=== PATIENT | female | born 1985 | race Caucasian/White ===

== ENCOUNTER 2019-03-25 13:24 | Emergency (ER) | payer OTHER, SELFPAY ==
--- NOTE | ~2019-03-25 | XR_ITS ---
EXAMINATION: XR chest 2V DATE: 03/25/2019 14:04 INDICATION: Palpitations. TECHNIQUE: Frontal and lateral views of the chest were obtained. COMPARISON: Chest 2 views 12/26/2018 FINDINGS: There is chronic mild elevation of right hemidiaphragm. There is no pneumonia, pleural effu joyce, or pneumothorax. The heart size is normal. There is a right internal jugular port with tip in t he vena cava. There are surgical clips in right axilla. IMPRESSION: 1. No acute cardiopulmonary disease. Reviewed, dictated and finalized at location A. L OPERATIONS MANAGER
--- NOTE | ~2019-03-25 | CT_ITS ---
EXAMINATION: CTA chest PE protocol DATE: 03/25/2019 16:46 INDICATION: Shortness of breath. TECHNIQUE: Computed tomography angiography (CTA) of the chest was performed with 100 mL Omnipaque-350 intravenous contrast timed to evaluate the pulmonary arteries. Coronal maximum intensity projection 3D-reconstructions were created by the technologist. Automated exposure control and iterative reconst ruction technique were employed. The dose-length product was 422.89 mGy-cm. COMPARISON: CT abdomen and pelvis 11/03/2018 FINDINGS: There is mild atelectasis in the lungs bilaterally. There is mild radiation fibrosis in ant erior right lung. No pleural effusion. There is a right internal jugular port with tip in right atriu m. The heart size is normal. No pericardial effusion. There is no pulmonary embolus. There is diffuse hepatic steatosis. There are surgical clips in right axilla. There are changes of bilateral mastecto mies. There are scattered mixed lytic and sclerotic lesions of bone with involvement of the sternum, most of the vertebral bodies, and some of the ribs. IMPRESSION: 1. No pulmonary embolus. Sensitivity is mildly decreased by motion artifact. 2. Mild radiation fibrosis in anterior right lung. 3. Bone lesions, consistent with metastatic disease. Reviewed, dictated and finalized at location A. GENCY ROOM CLINICIAN
--- NOTE | 2019-03-25 13:26 | ECG_ITS ---
Measurements Intervals [place] Rate: 116 P: -26 DC: 133 QRS: 133 QRSD: 90 T: -11 QT: 315 QTc: 439 Interpretive Statements SINUS OR ECTOPIC ATRIAL TACHYCARDIA RIGHT AXIS DEVIATION CONSIDER INFERIOR INFARCT, AGE INDETERMINATE BASELINE ARTIFACT- II ABNORMAL ECG Electronically Signed On 03-25-2019 13:44:32 RETAIL DEPARTMENT SUPERVISOR by Bayron Dobson D.O.
[2019-03-25 13:27] VITALS: BP 181/118; PULSE 110; RESP 19; TEMP 36.6; O2SAT 100
--- NOTE | 2019-03-25 13:43 | PC.NURSE ---
Unable to obtain all labs at this time, patient has port and would like to use that. Patient placed in private waiting room for patient safety due to active cancer treatment and immune compromise.
[2019-03-25 14:17] LABS: Troponin I < 0.012 ng/mL (0.000-0.034)
[2019-03-25 14:22] LABS: Blood Urea Nitrogen 10 mg/dL (7-17); Calcium 9.3 mg/dL (8.4-10.2); Carbon Dioxide 19 mmol/L (22-30); Chloride 103 mmol/L (98-107); Estimated CRCL calculation 166 ml/min; Estimated Glomerular Filt Rate > 60; Glucose 99 mg/dL (65-105); Potassium 3.8 mmol/L (3.4-5.0); Sodium 139 mmol/L (137-145)
[2019-03-25 14:30] VITALS: BP 144/100; PULSE 107; RESP 20; O2SAT 98
--- NOTE | 2019-03-25 14:36 | ED.ARRPALP ---
HPI - Arrhythmia/Palpitations General Chief Complaint: Arrhythmia/Palpitations Stated Complaint: elevated bp and hr Time Seen by Provider: 03/25/19 14:30 Source: patient Mode of arrival: ambulatory Limitations: no limitations History of Present Illness HPI narrative: A 33 y/o female presents to the ED, with c/o heart palpitations that began this morning. Pt states that she was sitting at her desk at work when she could feel her heart racing and notes feeling hot, lightheaded, very SOB and having N/V, but denies having CP. Her BP at work was 187/120 and her pulse was 114. Pt reports feeling less than normal for the past 2 weeks, and is having a recent onset of WORLEY, fatigue, high BP, panic attacks, hand swelling, BLE swelling (worse on lt), numbness in her feet, decreased appetite, and weight gain. She reports having unusual bruising to her LLE that she states is tender and keeps getting darker. Pt notes having metastatic breast CA but otherwise denies any PMHx. MD complaint: heart racing Onset (ago): hour(s) Duration: constant Associated symptoms: shortness of breath, nausea and vomiting Related Data Home Medications Medication Instructions Recorded Confirmed lorazepam 0.5 mg PO BID PRN 12/26/18 12/26/18 ondansetron 4 mg PO Q6H PRN 12/26/18 12/26/18 palbociclib 125 mg PO DAILY 12/26/18 12/26/18 prochlorperazine maleate 10 mg PO Q6H PRN 12/26/18 12/26/18 morphine PO 03/25/19 Allergies Allergy/AdvReac Type Severity Reaction Status Date / Time DIPHENHYDRAMINE HCL Allergy Severe Swelling Uncoded 03/25/19 13:30 Review of Systems Review of Systems: All systems reviewed & are unremarkable except as noted in HPI and below Constitutional: Constitutional: Reports fatigue, Reports headache(s), Reports poor appetite and Reports weight gain Cardiovascular: Cardiovascular: Denies chest pain, Reports pedal edema, Reports lightheadedness, Reports palpitations and Reports dyspnea Gastrointestinal: Gastrointestinal: Reports nausea and Reports vomiting Musculoskeletal: Musculoskeletal: Reports joint swelling (Bilateral hand swelling) and Reports numbness (BLE) Integumentary/Breasts: Skin/Breast: Reports unusual bruising (LLE) Psychiatric: Psychiatric: Reports panic attacks PMFSH Past Medical History Medical History Bipolar 1 disorder Breast cancer with chemotherapy and radiation therapy TIA (transient ischemic attack) Surgical History Surgical History Deficient knowledge of caesarean delivery x2 H/O mastectomy Social History Social History Smoking status: Unknown if ever smoked Gender identity (if verbalized by the patient): Female Exam Const: General: healthy appearing and no acute distress Nutritional Appearance: well nourished HENMT: Mouth: Yes lip normal and Yes moist mucous membranes Eyes: Conjunctivae: conjunctivae normal Pupils: Equal, round and reactive pupils present Resp: Effort & Inspection: normal respiratory effort Auscultation: clear to auscultation bilaterally Cardio: Rate: tachycardic Rhythm: regular rhythm Heart sounds: no murmurs GI: GI Palp: Yes Soft to palpation and No Tenderness to palpation present (GI) Auscultation: normal bowel sounds Back/Spine/Pelvis: Other: Full ROM Skin: General skin exam: normal color, dry skin and other (warm) Neuro: General: patient oriented x3 (alert) Speech: normal speech Extrem: General: full ROM Other: BLE edema (worse on the lt than the rt) Bruising on the posterior medial calf Psych: Mental Status: mental status grossly normal Affect: normal affect Course Vital Signs Vital signs: Vital Signs Temperature 36.6 C 03/25/19 13:27 Pulse Rate 110 H 03/25/19 13:27 Respiratory Rate 19 03/25/19 13:27 Blood Pressure 181/118 H 03/25/19 13:27 Pulse Oximetry 100 02
[2019-03-25 15:21] LABS: Basophils Percent Auto 0.8 % (0.2-1.2); Eosinophils Absolute Auto 0.4 K/mm3 (0-0.3); Eosinophils Percent Auto 7.9 % (0-4.4); Hematocrit 33.6 % (37.0-47.0); Hemoglobin 10.9 g/dL (12.0-15.0); Immature Granulocyte Absolute 0.11 K/mm3 (0.00-0.031); Immature Granulocyte Percent A 2.1 % (0-0.5); Lymphocytes Absolute Auto 1.42 K/mm3 (0.9-3.2); Lymphocytes Percent Auto 26.7 % (18.3-44.2); Mean Corpuscular HGB Conc 32.4 g/dl (32-36); Mean Corpuscular Hemoglobin 29.4 pg (26-34); Mean Corpuscular Volume 90.6 fl (80-100); Mean Platelet Volume 8.6 fl (7.4-10.4); Monocytes Absolute Auto 0.8 K/mm3 (0.1-0.6); Monocytes Percent Auto 14.1 % (2.6-8.5); Neutrophils Absolute Auto 2.6 K/mm3 (1.3-6.7); Neutrophils Percent Auto 48.4 % (45.5-73.1); Platelet Count Result 198 k/mm3 (150-375); Red Blood Count 3.71 M/mm3 (4.2-5.4); Red Cell Distribution Width 14.7 % (11.5-14.5); White Blood Count 5.3 K/mm3 (4.5-10.0)
[2019-03-25 15:30] VITALS: BP 164/109; PULSE 100; RESP 16; O2SAT 98
[2019-03-25 15:51] LABS: INR 0.9; Prothrombin Time 12.2 Seconds (11.1-14.7)
[2019-03-25 15:52] LABS: Partial Thromboplastin Time 35.4 SECONDS (22.3-36.8)
[2019-03-25 16:30] VITALS: BP 149/100; PULSE 105; RESP 18; O2SAT 100
[2019-03-25 17:24] LABS: Troponin I < 0.012 ng/mL (0.000-0.034)
[2019-03-25 17:40] VITALS: BP 147/101; PULSE 102; RESP 20; O2SAT 98
== END 2019-03-25 17:40 | disposition home or self-care (01) ==
PROVIDERS: Emergency Medicine; Emergency Provider Emergency Medicine
DX: R00.2 Palpitations (principal); C50.919 Malignant neoplasm of unspecified site of unspecified female breast; C79.9 Secondary malignant neoplasm of unspecified site; F31.9 Bipolar disorder, unspecified; Z86.73 Personal history of transient ischemic attack (TIA), and cerebral infarction without residual deficits; R00.0 Tachycardia, unspecified; R94.31 Abnormal electrocardiogram [ECG] [EKG]
CPT/HCPCS: 36415; 71046; 71275; 80048; 84484; 85025; 85610; 85730; 93005; 99284; Q9967

== ENCOUNTER 2019-06-04 14:52 | Outpatient (CLI) | payer OTHER, SELFPAY ==
--- NOTE | 2019-06-07 12:16 | WPDHOLTEREM ---
Holter/Event Monitor Holter/Event Monitor Date of procedure: 06/04/19 Procedure Type: 48 hour holter monitor Indications: Palpitations Conclusion: 1. 48 hour holter monitor o 06/04/19. 2. Underlying rhythm is sinus rhythm. HR range 57-160 bpm; average HR 91 bpm. 3. There are 2 premature supraventricular complexes and 1 supraventricular couplet. No supraventricular tachycardia. 4. There are 2 premature ventricular complexes. No ventricular tachycardia. 5. No sinoatrial or atrioventricular blocks. No significant pauses greater than 2 seconds. 6. Patient reports chest pain and shortness of breath which demonstrate sinus rhythm, HR range 93-111 bpm
== END 2019-06-04 14:53 | disposition home or self-care (01) ==
PROVIDERS: PCP Physician Assistant; Visit Provider Internal Medicine Cardiovascular Disease
DX: R00.2 Palpitations (principal)
CPT/HCPCS: 93225; 93226

== ENCOUNTER 2019-06-07 07:38 | Outpatient (CLI) | payer OTHER, SELFPAY ==
--- NOTE | 2019-06-07 07:58 | ECHO_ITS ---
Patient Info Name: Christy Hernadez Age: 33 years : 1985 Gender: Female Ht: 62 in Wt: 202 lbs BSA: 2.05 m2 HR: 91 bpm BP: 136 / 103 mmHg Technical Quality: Fair Exam Date: 06/07/2019 8:11 AM Exam Location: [facility] Patient Status: Outpatient Admit Date: 06/07/2019 Staff Ordering Physician: Bayron Dobson DO Bronze Chaser: Abbie Majano RDCS Attending Provider: Bayron Dobson DO Referring Physician: Bronson LOMELI; Exam Type: CA echo doppler color flow Study Info Indications R00.2 - Palpitations Complete two-dimensional, color flow and Doppler transthoracic echocardiogram is performed. Summary 1. Left ventricular chamber dimension is normal. 2. Left ventricular systolic function is normal, estimated at 60-65%. 3. There is mildly increased left ventricular wall thickness. 4. The left ventricular diastolic function is normal. 5. E/e' 7 is not elevated. 6. Global longitudinal strain is abnormal at -13.1%. 7. There is trace tricuspid valve regurgitation. 8. No pulmonary hypertension, estimated pulmonary arterial systolic pressure is 22 mmHg. 9. There is trace pulmonic regurgitation. Left Ventricle E/e' 7 is not elevated. Global longitudinal strain is abnormal at -13.1%. Left ventricular chamber dimension is normal. Left ventricular systolic function is normal, estimated at 60-65%. There is mildly increased left ventricular wall thickness. The left ventricular diastolic function is normal. Right Ventricle Right ventricular chamber dimension is normal. Right ventricular systolic function is normal. Left Atria Left atrial chamber dimension is normal. Right Atria Right atrial chamber dimension is normal. Aortic Valve The aortic valve is trileaflet. There is no aortic valve stenosis. There is no aortic valve regurgitation. Pulmonic Valve There is trace pulmonic regurgitation. Mitral Valve There is no mitral valve stenosis. There is no mitral valve regurgitation. Tricuspid Valve There is trace tricuspid valve regurgitation. No pulmonary hypertension, estimated pulmonary arterial systolic pressure is 22 mmHg. Pericardium/Pleural There is no pericardial effusion. Inferior Vena Cava Normal inferior vena cava with >50% collapse upon inspiration consistent with normal right atrial pressure, 5 mmHg. Aorta The aortic root size at the sinus of Valsalva is normal. Left Ventricular Outflow Tract Name Value Normal LVOT 2D LVOT Diameter 1.9 cm LVOT Doppler LVOT Peak Gradient 5 mmHg LVOT Mean Gradient 3 mmHg LVOT VTI 19 cm LVOT VTI/AV VTI Ratio 1.1 LVOT Stroke Volume 54 ml LVOT CO 4.9 l/min LVOT CI 2.4 l/min/m2 Pulmonic Valve Name Value Normal RVOT Doppler
== END 2019-06-07 07:39 | disposition home or self-care (01) ==
PROVIDERS: PCP Physician Assistant; Visit Provider Internal Medicine Cardiovascular Disease
DX: R00.2 Palpitations (principal)
CPT/HCPCS: 93306

== ENCOUNTER 2019-08-03 19:01 | Emergency (ER) | payer OTHER, SELFPAY ==
[2019-08-03 19:13] VITALS: BP 153/96; PULSE 105; RESP 18; TEMP 37.4; O2SAT 100
--- NOTE | 2019-08-03 19:15 | ED.GENADULT ---
HPI - General Adult General Chief complaint: Chest Pain Stated complaint: sob Time Seen by Provider: 08/03/19 19:15 Source: patient Mode of arrival: ambulatory Limitations: no limitations History of Present Illness HPI narrative: 33-year-old female patient presents to the [facility] with complaints of chest pain, shortness of breath and left-sided weakness. Patient states that she was next-door getting her medicines from the pharmacy when she started feeling some chest pain worsening shortness of breath and feeling weak on the left side. Patient states that we are the closest facility so she decided to come over here. Patient does have a history of stage IV breast cancer and did see her oncologist today and talk to him about the shortness of breath and just not being able to take a full deep breath. Patient states he thought it might of been a pulled muscle. Patient states that she is currently taking oral chemo at this time. Patient states her left arm just feels very tingly her left leg feels very heavy and her left side of the knee face feels numb. Patient states that her symptoms started about 20 minutes ago. Related Data Home Medications Medication Instructions Recorded Confirmed lorazepam 0.5 mg PO BID PRN 12/26/18 05/31/19 ondansetron 4 mg PO Q6H PRN 12/26/18 05/31/19 prochlorperazine maleate 10 mg PO Q6H PRN 12/26/18 05/31/19 capecitabine 500 mg tablet 2,000 mg PO BID tablet 05/31/19 05/31/19 lisinopril 10 1 tablet PO DAILY 05/31/19 05/31/19 mg-hydrochlorothiazide 12.5 mg tablet morphine 15 mg tablet,extended PO PRN 05/31/19 05/31/19 release sertraline mg 08/03/19 Allergies Allergy/AdvReac Type Severity Reaction Status Date / Time DIPHENHYDRAMINE HCL Allergy Severe Swelling Uncoded 03/25/19 13:30 Review of Systems Review of Systems: Narrative: CONSTITUTIONAL: Denies fever, chills, or sweats. EYES: Denies visual changes, redness, or discharge. ENT: Denies rhinorrhea, congestion, sore throat, or otalgia. CARDIOVASCULAR: Positive chest pain, palpitations, or edema. RESPIRATORY: Denies cough, positive dyspnea. GASTROINTESTINAL: Denies abdominal pain, nausea, vomiting, or diarrhea. GENITOURINARY: Denies dysuria or hematuria. SKIN: Denies rash or itching. MUSCULOSKELETAL: Denies back pain, joint pain, or myalgia. NEUROLOGIC: Denies headache, positive numbness, and weakness on left side. PSYCHIATRIC: Denies anxiety or depression. [facility] Past Medical History Medical History Bipolar 1 disorder Breast cancer with chemotherapy and radiation therapy TIA (transient ischemic attack) Surgical History Surgical History Deficient knowledge of caesarean delivery x2 H/O mastectomy Social History Social History Smoking status: Unknown if ever smoked Gender identity (if verbalized by the patient): Female Comments At the time of my signature I agree with nursing past medical history, surgical, social, and family history. There is no relevant family history pertinent to the presenting complaint. Exam Narrative: Exam Narrative: GENERAL: Well-appearing, well-nourished, and in no acute distress. HEAD: Normocephalic, atraumatic. EYES: PERRLA and EOMI. ENT: Nares clear, no rhinorrhea or epistaxis. Mucous membranes moist. NECK: Supple. No lymphadenopathy CHEST: Clear to auscultation. Patient noted to have some shallow breathing and states that she cannot take a full deep breath HEART: Regular rate and rhythm. No murmur heard. Normal peripheral pulses. ABDOMEN: Soft, nontender, distended, normal active bowel sounds. EXTREMITIES: Normal range of motion. No edema. SKIN: Warm, dry, no rash. NEURO: Alert and oriented x4, GCS 15. Cranial nerves II through XII grossly intact. No focal neurological deficits. Decrease muscle strength and tone to left hand gra
--- NOTE | 2019-08-03 19:29 | ECG_ITS ---
Measurements Intervals [place] Rate: 103 P: 27 NE: 145 QRS: 40 QRSD: 89 T: 26 QT: 330 QTc: 432 Interpretive Statements SINUS TACHYCARDIA ABNORMAL ECG Electronically Signed On 08-03-2019 19:57:46 CDT by Bayron Dobson D.O.
--- NOTE | 2019-08-03 19:44 | PC.NURSE ---
Patient was next door at the pharmacy and started with left sided numbness and weakness. Came directly to us. No apparent difficulty breathing. States she can not take a deep breath.
== END 2019-08-03 19:38 | disposition short-term general hospital (02) ==
PROVIDERS: Emergency Provider Nurse Practitioner Family
DX: R07.9 Chest pain, unspecified (principal); R06.02 Shortness of breath; C50.919 Malignant neoplasm of unspecified site of unspecified female breast; F31.9 Bipolar disorder, unspecified; Z86.73 Personal history of transient ischemic attack (TIA), and cerebral infarction without residual deficits; Z79.899 Other long term (current) drug therapy; Z92.3 Personal history of irradiation; R53.1 Weakness; F41.9 Anxiety disorder, unspecified; Z90.13 Acquired absence of bilateral breasts and nipples; I10 Essential (primary) hypertension; R00.0 Tachycardia, unspecified
CPT/HCPCS: 93005; 99215; G0463